=== PATIENT | female | born 1990 | race Caucasian/White ===

== ENCOUNTER 2021-09-27 00:27 | Emergency (ER) | payer OTHER ==
[~2021-09-27] VITALS: Ht 158.5 cm; Wt 76.8 kg
[2021-09-27 00:39] VITALS: BP 118/76
--- NOTE | 2021-09-27 00:42 | NUR ---
pt taken to bed 09 with sister.
--- NOTE | 2021-09-27 00:44 | NUR ---
Dr. Crockett examining patient.
[2021-09-27] MEDS ORDERED: KETOROLAC 30 MG/ML VIAL IVP ONE (00:45)
[2021-09-27] MEDS ORDERED: NACL 0.9% 1,000 ML IV ONE (00:45)
[2021-09-27] MEDS ORDERED: ONDA-188 SL (01:06)
--- NOTE | 2021-09-27 01:55 | NUR ---
Dr. Crockett at bedside to explain treatment plans.
--- NOTE | 2021-09-27 02:00 | NUR ---
IV removed, catheter intact and site benign. Applied folded 4x4 gauze and tape to stop bleeding.
[2021-09-27 02:02] VITALS: BP 116/74
== END 2021-09-27 02:02 | disposition home or self-care (01) ==
LOC: MED 00:27
DX: A08.4 Viral intestinal infection, unspecified (principal); Z79.899 Other long term (current) drug therapy
CPT/HCPCS: 81002; 81025; 96374; 99283; J1885; J7030

== ENCOUNTER 2022-11-11 11:31 | Emergency (ER) | payer OTHER ==
[~2022-11-11] VITALS: Ht 165.1 cm; Wt 68.9 kg
[~2022-11-11 11:31] MED LIST: ONDA-188 SL
[2022-11-11 11:54] VITALS: BP 103/75; PULSE 64; RESP 20; TEMP 97.2; O2SAT 100
--- NOTE | 2022-11-11 11:58 | NUR ---
PT AMBULATED TO RESTROOM FOR URINE SAMPLE
--- NOTE | 2022-11-11 12:03 | NUR ---
PT AMBULATED TO LOBBY FROM TRIAGE
[2022-11-11] MEDS ORDERED: ONDANSETRON 4 MG ODT PO ONE (12:35)
[2022-11-11] MEDS ORDERED: IBUPROFEN 600 MG TAB PO ONE (12:35)
[2022-11-11 12:40] VITALS: O2SAT 100
[2022-11-11] MEDS ORDERED: ONDA-188 SL (13:10)
[2022-11-11] MEDS ORDERED: IBUP-2213 PO (13:10)
[2022-11-11 13:40] VITALS: BP 110/75; PULSE 64; RESP 20; TEMP 97.2; O2SAT 100
--- NOTE | 2022-11-11 13:40 | NUR ---
Patient discharged with v/s stable. Written and verbal after care instructions given and explained. Patient alert, oriented and verbalized understanding of instructions. Ambulatory with steady gait. All questions addressed prior to discharge. ID band removed. Patient advised to follow up with PMD. Rx of IBUPROFEN AND ZOFRAN ODT given. Opportunity to ask questions provided and answered.
--- NOTE | 2022-11-11 13:45 | NUR ---
The patient's care was reviewed and supervised by NARINDER GILES RN.
== END 2022-11-11 13:40 | disposition home or self-care (01) ==
LOC: MED 11:31
DX: G44.209 Tension-type headache, unspecified, not intractable (principal); K52.9 Noninfective gastroenteritis and colitis, unspecified; F41.9 Anxiety disorder, unspecified; F32.A Depression, unspecified; Z79.899 Other long term (current) drug therapy
CPT/HCPCS: 81002; 81025; 99283; Q0162